=== PATIENT | female | born 1980 | race American Indian/Alaskan Native ===

== ENCOUNTER 2016-11-03 23:25 | Emergency (ER) | payer SELFPAY ==
[2016-11-04 00:22] VITALS: BP 139/98
[2016-11-04] MEDS ORDERED: MOTRIN PO ONE (00:45)
[2016-11-04] MEDS ORDERED: BOOSTRIX IM ONE (00:45)
[2016-11-04] MEDS ORDERED: THERMAZENE 50 GRAM TP ONE (00:47)
--- NOTE | 2016-11-04 00:52 | Emergency Department Report ---
ED Burn/Smoke HPI - General Chief complaint: Burn/Smoke Inhalation Stated complaint: RT HAND BURN Time Seen by Provider: 11/04/16 00:43 Source: patient Mode of arrival: Ambulatory Limitations: No Limitations - History of Present Illness Initial comments: This is a 36-year-old female well-nourished with nontoxic or ill in appearance that presents with right hand burn with hot grease that occurred today. Patient stated she was cooking and the hot grease splattered to her right hand. Patient agrees to putting cold compressors to the extremity. Patient denies any numbness, chills, tingling, chest pain, fever, nausea, vomiting, abdominal pain, headache, pus, drainage. Patient stated this on the left tetanus shot. Patient denies any allergies. MD Complaint: burn -: This evening Type of Exposure: hot liquid (grease) Place: home Location: other (right hand) Location - Extremities: Right: Hand (anterior) Severity: moderate Severity scale (0 -10): 10 Associated Symptoms: denies other symptoms. denies: headache, vision changes, cough, diaphoresis, fever/chills, chest pain, flushing, neck pain, nausea/ vomiting - Related Data Previous Rx's Medication Instructions Recorded Last Taken Type Ibuprofen [Motrin 600 MG tab] 600 mg PO Q8H PRN #15 tablet 11/04/16 Unknown Rx Silver Sulfadiazine [Ssd] 50 gm TP DAILY #1 cream..g. 11/04/16 Unknown Rx Allergies Allergy/AdvReac Type Severity Reaction Status Date / Time No Known Allergies Allergy Unverified 11/04/16 00:22 Burn HPI - History Stated Complaint: RT HAND BURN Chief Complaint: Burn/Smoke Inhalation Time Seen by Provider: 11/04/16 00:43 - Home Meds and Allergies Home Medications: Previous Rx's Medication Instructions Recorded Last Taken Type Ibuprofen [Motrin 600 MG tab] 600 mg PO Q8H PRN #15 tablet 11/04/16 Unknown Rx Silver Sulfadiazine [Ssd] 50 gm TP DAILY #1 cream..g. 11/04/16 Unknown Rx Allergies/Adverse Reactions: Allergies Allergy/AdvReac Type Severity Reaction Status Date / Time No Known Allergies Allergy Unverified 11/04/16 00:22 ED Review of Systems ROS: Stated complaint: RT HAND BURN Other details as noted in HPI Constitutional: denies: chills, fever Eyes: denies: eye pain, eye discharge, vision change ENT: denies: ear pain, throat pain Respiratory: denies: cough, shortness of breath, wheezing Cardiovascular: denies: chest pain, palpitations Endocrine: no symptoms reported Gastrointestinal: denies: abdominal pain, nausea, diarrhea Genitourinary: denies: urgency, dysuria, discharge Musculoskeletal: denies: back pain, joint swelling, arthralgia Skin: denies: rash, lesions Neurological: denies: headache, weakness, paresthesias Psychiatric: denies: anxiety, depression Hematological/Lymphatic: denies: easy bleeding, easy bruising ED Past Medical Hx - Past Medical History Previous Medical History?: No - Surgical History Past Surgical History?: No - Social History Smoking Status: Never Smoker Substance Use Type: None - Medications Home Medications: Home Medications Medication Instructions Recorded Confirmed Last Taken Type Ibuprofen [Motrin 600 MG tab] 600 mg PO Q8H PRN #15 tablet 11/04/16 Unknown Rx Silver Sulfadiazine [Ssd] 50 gm TP DAILY #1 cream..g. 11/04/16 Unknown Rx ED Physical Exam - General Limitations: No Limitations General appearance: alert, in no apparent distress - Head Head exam: Present: atraumatic, normocephalic, normal inspection - Eye Eye exam: Present: normal appearance, PERRL, EOMI. Absent: scleral icterus, conjunctival injection, nystagmus, periorbital swelling, periorbital tenderness Pupils: Present: normal accommodation - ENT ENT exam: Present: normal exam, normal orophraynx, mucous membranes moist, TM's normal bilaterally, normal external ear exam - Neck Neck exam: Present: normal inspection, full ROM. Absent: tenderness, meningismus, lymphadenopathy, thyromegaly - Respiratory Respiratory exam: Present: normal lung sounds bilaterally. Absent: respiratory distress, wheezes, rales, rhonchi, stridor, chest wall tenderness, accessory muscle use, decreased breath sounds, prolonged expiratory - Cardiovascular Cardiovascular Exam: Present: regular rate, normal rhythm, normal heart sounds. Absent: bradycardia, tachycardia, irregular rhythm, systolic murmur, diastolic murmur, rubs, gallop - GI/Abdominal GI/Abdominal exam: Present: soft, normal bowel sounds. Absent: distended, tenderness, guarding, rebound, rigid, diminished bowel sounds - Extremities Exam Extremities exam: Present: normal inspection, full ROM, normal capillary refill. Absent: tenderness, pedal edema, joint swelling, calf tenderness - Expanded Upper Extremity Exam Right Shoulder Exam: Present: normal inspection, full ROM. Absent: tenderness, swelling, abrasion, laceration, ecchymosis Upper Arm exam: Present: normal inspection, full ROM. Absent: tenderness, swelling, abrasion, laceration, ecchymosis Elbow exam: Present: normal inspection, full ROM. Absent: tenderness, swelling , abrasion Forearm Wrist exam: Present: normal inspection. Absent: full ROM, tenderness, swelling, abrasion, laceration Hand Wrist exam: Present: normal inspection, full ROM, tenderness, erythema, other (0.5 cm blister and erythema with no ruptured blisters). Absent: swelling , abrasion, laceration, ecchymosis, deformity, crepidus, dislocation, amputation , nail avulsion, subungual hematoma Hand L/R Back: 1 - 0.5 cm blister with erythema Neuro motor exam: Present: wrist extension intact, thumb opposition intact, thumb IP flexion intact, thumb adduction intact, fingers 2-5 abduction intact Neurosensory exam: Present: 2-point discrimination, radial nerve intact, ulnar nerve intact, median nerve intact Vascular: Present: vascular compromise - Back Exam Back exam: Present: normal inspection, full ROM. Absent: tenderness, CVA tenderness (R), CVA tenderness (L), muscle spasm, paraspinal tenderness, vertebral tenderness, rash noted - Neurological Exam Neurological exam: Present: alert, oriented X3, CN II-XII intact, normal gait - Psychiatric Psychiatric exam: Present: normal affect, normal mood - Skin Skin exam: Present: warm, dry, intact, normal color. Absent: rash ED Course Vital Signs 11/04/16 00:19 Temperature 98.7 F Pulse Rate 73 Respiratory 18 Rate Blood Pressure 139/98 O2 Sat by Pulse 100 Oximetry ED Medical Decision Making - Medical Decision Making Ed course: This is a 36-year-old female that presents with 1st degree burn to the right hand 1- after my physical exam, patient received Silvadene ointment with sterile dressing to the right hand. 2- patient was instructed to continue the Silvadene with sterile dressing to the right hand and was instructed to follow-up with [facility] outpatient. 3- patient received ibuprofen 600 mg by mouth in the ED as well as discharge. 4- patient was instructed not to pop the blisters. 5- at time time of discharge, the patient does not seem toxic or ill in appearance. No acute signs of distress noted. Patient agrees to discharge treatment plan of care. No further questions noted by the patient. Critical care attestation.: If time is entered above; I have spent that time in minutes in the direct care of this critically ill patient, excluding procedure time. ED Disposition Clinical Impression: First degree burn of hand Qualifiers: Encounter type: initial encounter Laterality: right Qualified Code(s): T23.101A - Burn of first degree of right hand, unspecified site, initial encounter Disposition: TO HOME OR SELFCARE Is pt being admited?: No Does the pt Need Aspirin: No Condition: Stable Instructions: Silver Sulfadiazine (On the skin), Superficial Burn (ED), Acute Wound Care (ED) Additional Instructions: Please apply Silvadene and apply sterile dressing to the right hand. Follow-up with [facility]/primary care doctor in 24 hours. Prescriptions: Ibuprofen [Motrin 600 MG tab] 600 mg PO Q8H PRN #15 tablet PRN Reason: Pain Silver Sulfadiazine [Ssd] 50 gm TP DAILY #1 cream..g. Referrals: [facility] [Outside] - 3-5 Days [facility] [place] [Outside] - 3-5 Days CHIDI KLEIN JR, MD [Staff Physician] - 3-5 Days [facility] [Outside] - 24 Hours PRIMARY CAREMD [Primary Care Provider] - 24 Hours Forms: Work/School Release Form(ED)
== END 2016-11-04 01:20 | disposition home or self-care (01) ==
LOC: ED 23:25
DX: T23.101A Burn of first degree of right hand, unspecified site, initial encounter (principal); X19.XXXA Contact with other heat and hot substances, initial encounter; Y93.G3 Activity, cooking and baking; Y99.8 Other external cause status; Y92.89 Other specified places as the place of occurrence of the external cause
CPT/HCPCS: 90471; 90715

== ENCOUNTER 2019-02-04 22:23 | Outpatient (CLI) | payer OTHER ==
[2019-02-04] MEDS ORDERED: LACTATED RINGERS 1,000 ML IV ONE (23:04)
[2019-02-04 23:49] LABS: Hematocrit 27.1 % (30.3-42.9); Hemoglobin 9.6 gm/dl (10.1-14.3); Mean Corpuscular HGB Conc 36 % (30-34); Mean Corpuscular Volume 87 fl (79-97); Platelet Count 217 K/mm3 (140-440); Red Cell Distribution Width 14.1 % (13.2-15.2)
[2019-02-05 00:15] LABS: Amphetamine Screen,Urine PRESUMPTIVE NEGATIVE; Benzodiazepines Screen,Urine PRESUMPTIVE NEGATIVE; Cannabinoid Screen,Urine PRESUMPTIVE NEGATIVE; Cocaine Screen,Urine PRESUMPTIVE NEGATIVE; Methadone Screen,Urine PRESUMPTIVE NEGATIVE; Opiate Screen,Urine PRESUMPTIVE NEGATIVE
[2019-02-05 00:20] LABS: Bilirubin,Urine NEG (Negative); Blood,Urine SM (Negative); Color,Urine Yellow (Yellow); Mucus,Urine FEW /HPF; Protein,Urine <15 mg/dL mg/dL (Negative); Urobilinogen,Urine < 2.0 mg/dL (<2.0)
[2019-02-05 00:28] LABS: Alanine Aminotransferase 9 units/L (7-56)
--- NOTE | 2019-02-05 00:30 | Ultrasound Report ---
Limited obstetrical ultrasound INDICATION: , pain COMPARISON: None FINDINGS: Intrauterine is noted with estimated gestational age of 36 weeks 3 days. I do not see a sig nificant discrepancy between head and body measurements. Estimated weight is 2938 g. Fetus is i n a cephalic position. Cardiac activity was recorded at 136 bpm. Amniotic fluid volume appears qualit atively within normal limits for this stage of and HEATHER is within normal limits at 10.5 cm. The center is fundal and free of the internal cervical os. No placental abnormalities are seen. There is no evidence of abruption. I do not have a full anatomical survey but no obvious anomaly was detec karolina. IMPRESSION: No abnormalities are seen Signer Name: Dyllan Brizuela MD Signed: 02/05/2019 12:26 AM Workstation Name: [id number]
[2019-02-05] MEDS ORDERED: TYLENOL PO ONE (01:32)
[2019-02-05 02:10] VITALS: BP 130/85
[2019-02-05] MEDS ORDERED: VISTARIL PO ONE (02:37)
[2019-02-05 03:04] LABS: Uric Acid 5.2 mg/dL (3.5-7.6)
== END 2019-02-05 02:45 | disposition home or self-care (01) ==
LOC: TRG 22:23
PROVIDERS: ATTEND Obstetrics & Gynecology
DX: O26.893 Other specified pregnancy related conditions, third trimester (principal); R10.2 Pelvic and perineal pain; O99.333 Smoking (tobacco) complicating pregnancy, third trimester; F17.200 Nicotine dependence, unspecified, uncomplicated; Z3A.35 35 weeks gestation of pregnancy
CPT/HCPCS: 36415; 59025; 76816; 80307; 81001; 82565; 83615; 84450; 84460; 84550; 85027; 87086; 96360; J7120; Q0177

== ENCOUNTER 2019-03-05 07:48 | Outpatient (CLI) | payer OTHER ==
[2019-03-05 08:03] VITALS: BP 124/81
[2019-03-05 09:18] LABS: Bilirubin,Urine NEG (Negative); Blood,Urine LG (Negative); Color,Urine Yellow (Yellow); Mucus,Urine FEW /HPF; Protein,Urine <15 mg/dL mg/dL (Negative); Urobilinogen,Urine < 2.0 mg/dL (<2.0)
== END 2019-03-05 10:40 | disposition home or self-care (01) ==
LOC: TRG 07:48
PROVIDERS: ATTEND Obstetrics & Gynecology
DX: O46.93 Antepartum hemorrhage, unspecified, third trimester (principal); O99.333 Smoking (tobacco) complicating pregnancy, third trimester; Z3A.39 39 weeks gestation of pregnancy
CPT/HCPCS: 59025; 81001